=== PATIENT | female | born 1940 | race Asian ===

== ENCOUNTER 2017-04-26 20:11 | Emergency (ER) | payer OTHER ==
[2017-04-26 20:25] VITALS: BP 147/88; PULSE 79; TEMP 98; BMI 29.9
--- NOTE | 2017-04-26 21:10 | PDOC ---
History of Present Illness - General Chief Complaint: Pain Stated Complaint: FALL Time Seen by Provider: 04/26/17 20:33 - History of Present Illness Initial Comments: 04/26/17 21:10 CHIEF COMPLAINT: "coccyx pain" HISTORY OF PRESENT ILLNESS: 76 yo F with hx of HTN, NIDDM, HLD, and GERD presents to ED with coccyx pain s/p fall. Patient's daughter is at bedside and is a nurse. She is translating for mother. Daughter states that the two of them were in the garden when the patient lost her balance and fell onto her bottom. Patient daughter also states that they just returned home from [place] one week ago and the patient had developed "cellulitis to her left sevilla" and the pt's PCP prescribed po Augmentin which she has been taking for the past five days. Patient has pain to L calf and behind L knee. Patient and daughter deny any trauma or injury to head, any LOC, nausea, vomiting, but state that patient had "a little dizziness after her fall." PAST MEDICAL HISTORY: see HPI FAMILY HISTORY: Denies SOCIAL HISTORY: Denies tobacco, alcohol, illicit drug use. SURGICAL HISTORY: Denies ALLERGIES: No known drug allergies REVIEW OF SYSTEMS General/Constitutional: Denies fever or chills. Denies weakness, weight change. HEENT: Denies change in vision. Denies ear pain or discharge. Denies sore throat. Cardiovascular: Denies chest pain or shortness of breath. Respiratory: Denies cough, wheezing, or hemoptysis. Gastrointestinal: Denies nausea, vomiting, diarrhea or constipation. Denies rectal bleeding. Genitourinary: Denies dysuria, frequency, or change in urination. Musculoskeletal: "Coccyx pain, she hurts behind the L leg." Skin and breasts: Denies rash or easy bruising. Neurologic: Denies headache, vertigo, loss of consciousness, or loss of sensation. Psychiatric: Denies depression or anxiety. Endocrine: Denies increased thirst. Denies abnormal weight change. Hematologic/Lymphatic: Denies anemia, easy bleeding, or history of blood clots. Allergic/Immunologic: Denies hives or skin allergy. Denies latex allergy. PHYSICAL EXAM General Appearance: Well-appearing, appropriately dressed. No apparent distress , no intoxication. HEENT: EOMI, PERRLA, normal ENT inspection, normal voice, TMs normal, pharynx normal. No conjunctival pallor. No photophobia, scleral icterus. Neck: Supple. Trachea midline. No tenderness, rigidity, carotid bruit, stridor , lymphadenopathy, or thyromegaly. Respiratory/Chest: Lungs CTAB. No shortness of breath, chest tenderness, respiratory distress, accessory muscle use. No crackles, rales, rhonchi, stridor , wheezing, dullness Cardiovascular: RRR. S1, S2. No JVD, murmur, bradycardia, tachycardia. Vascular Pulses: Dorsalis-Pedis (R): 2+, Dorsalis-Pedis (L): 2+ Gastrointestinal/Abdominal: Normal bowel sounds. Abdomen soft, non-distended. No tenderness or rebound tenderness. No organomegaly, pulsatile mass, guarding , hernia, hepatomegaly, splenomegaly. Lymphatic: No adenopathy, tenderness. Musculoskeletal/Extremities: Tenderness to L upper calf and posterior to L knee. Normal inspection. FROM of all extremities, normal capillary refill. Pelvis Stable. No CVA tenderness. No tenderness to extremities, pedal edema, swelling, erythema or deformity. Integumentary: Appropriate color, dry, warm. No cyanosis, erythema, jaundice or rash Neurologic: ingot caster II-XII intact. Fully oriented, alert. Appropriate mood/affect. Motor strength 5/5. No appreciable EOM palsy, facial droop or sensory deficit. 04/26/17 21:28 04/26/17 23:21 Past History - Past Medical History Allergies/Adverse Reactions: Allergies Allergy/AdvReac Type Severity Reaction Status Date / Time No Known Drug Allergies Allergy Verified 04/26/17 20:17 Home Medications: Ambulatory Orders Diltiazem Cd [Cardizem Cd] 180 mg PO DAILY 05/09/12 Ezetimibe [Zetia] 10 mg PO HS 05/09/12 Gabapentin [Neurontin] 100 mg PO BID 05/09/12 Glyburide/Metformin HCl [Glucovance 5-500 mg Tablet] 1 each PO BID 05/09/12 Losartan Potassium [Cozaar] 50 mg PO HS 05/09/12 Multivitamin [Multivitamins] 1 each PO DAILY 05/09/12 Omeprazole Magnesium [Prilosec (OTC)] 20 mg PO DAILY 05/09/12 Ranitidine Oral Solution [Zantac] 150 mg PO HS 05/09/12 Simvastatin [Zocor] 10 mg PO HS 05/09/12 Oxycodone HCl/Acetaminophen [Percocet 5-325 mg Tablet] 1 tab PO Q6H PRN #30 tablet 05/23/12 Anemia: No Asthma: No Cancer: No Cardiac Disorders: No CVA: No COPD: No CHF: No Dementia: No Diabetes: Yes (CONTROLLED WITH ORAL MEDS) GI Disorders: Yes (GERD) Disorders: No HTN: Yes Hypercholesterolemia: Yes Liver Disease: No Seizures: No Thyroid Disease: No - Surgical History Abdominal Surgery: No Appendectomy: No Cardiac Surgery: No Cholecystectomy: No Lung Surgery: No Neurologic Surgery: No Orthopedic Surgery: Yes (LT ROTATOR CUFF REPAIR) - Psycho/Social/Smoking Cessation Hx Suicidal Ideation: No Smoking History: Never smoked Information on smoking cessation initiated: No Hx Alcohol Use: No Drug/Substance Use Hx: No Substance Use Type: None *Physical Exam - Vital Signs Last Vital Signs Temp Pulse Resp BP Pulse Ox 98.0 F 79 20 147/88 98 04/26/17 20:18 04/26/17 20:18 04/26/17 20:18 04/26/17 20:18 04/26/17 20:18 ED Treatment Course - LABORATORY CBC & Chemistry Diagram: 04/26/17 21:34 04/26/17 21:34 Medical Decision Making - Medical Decision Making 04/29/17 19:36 76 yo F with hx of HTN, NIDDM, HLD, and GERD presents to ED with coccyx pain s/ p fall. -cbc, cmp, pt/inr -hip/pelvis/sacrum x-rays -lumbar spine CT -LLE ultrasound Imaging all negative. No DVT on US. Advised patient and daughter to f/u with PCP this week and of signs and symptoms for return to ER; patient and daughter verbalized understanding and agree to plan. *DC/Admit/Observation/Transfer Diagnosis at time of Disposition: Fall Qualifiers: Encounter type: initial encounter Qualified Code(s): W19.XXXA - Unspecified fall, initial encounter - Discharge Dispostion Disposition: HOME Condition at time of disposition: Stable Admit: No - Referrals Referrals: Yojana Cisneros MD [Primary Care Provider] - - Patient Instructions Printed Discharge Instructions: How to Prevent Falls Additional Instructions: There was no fracture to the sacrum or lower spine. Please follow up with your primary care doctor this with for continued monitoring. If you develop any headache, dizziness, vomiting, or any new or worsening symptoms, please return to the ER.
[2017-04-26 22:10] LABS: BASOPHIL 0.7 % (0-2.0); MCH 30.3 pg (25.7-33.7); MCHC 33.6 g/dl (32.0-36.0); MEAN CELL VOLUME 90.1 fl (80-96); MEAN PLT VOLUME 8.8 fl (7.5-11.1); NEUTROPHILS 50.1 % (42.8-82.8); PLATELET COUNT 244 K/MM3 (134-434); RDW 13.6 % (11.6-15.6); WHITE BLOOD COUNT 6.3 K/mm3 (4.0-10.0)
[2017-04-26 22:30] LABS: INR 0.99 (0.82-1.09); PROTHROMBIN TIME (PATIENT) 10.9 SEC (9.98-11.88)
[2017-04-26 22:36] LABS: ALBUMIN 3.7 g/dl (3.4-5.0); ALK PHOS 80 U/L (45-117); ANION GAP 6 (8-16); BILIRUBIN,TOTAL 0.3 mg/dL (0.2-1.0); CALCIUM 9.2 mg/dL (8.5-10.1); CO2 28 mmol/L (21-32); GLUCOSE,RANDOM 167 mg/dL (74-106); SGOT/AST 49 U/L (15-37); SGPT/ALT 90 U/L (12-78); TOT PROT 7.5 g/dl (6.4-8.2)
[2017-04-26 22:39] LABS: URINE APPEARANCE CLEAR; URINE BILIRUBIN NEGATIVE (NEGATIVE); URINE BLOOD NEGATIVE (NEGATIVE); URINE COLOR STRAW; URINE GLUCOSE (UA) NEGATIVE (NEGATIVE); URINE KETONE NEGATIVE (NEGATIVE); URINE LEUK ESTERASE NEGATIVE (NEGATIVE); URINE NITRITE NEGATIVE (NEGATIVE); URINE PROTEIN NEGATIVE (NEGATIVE); URINE UROBILINOGEN NEGATIVE mg/dL (0.2-1.0)
--- NOTE | 2017-04-28 08:16 | EKG ---
Test Reason : Blood Pressure : / mmHG Vent. Rate : 067 BPM Atrial Rate : 067 BPM P-R Int : 186 ms QRS Dur : 074 ms QT Int : 418 ms P-R-T Axes : 044 042 056 degrees QTc Int : 441 ms NORMAL SINUS RHYTHM SEPTAL INFARCT , AGE UNDETERMINED ABNORMAL ECG WHEN COMPARED WITH ECG OF 09-MAY-2012 10:38, NO SIGNIFICANT CHANGE WAS FOUND Confirmed by MODESTA HAMLIN MD ([id number]) on 04/28/2017 8:16:13 AM Referred By: Confirmed By:MODESTA HAMLIN MD
== END 2017-04-27 01:36 | disposition home or self-care (01) ==
LOC: JER 20:11
DX: M53.3 Sacrococcygeal disorders, not elsewhere classified (principal); W18.39XA Other fall on same level, initial encounter; Y93.H2 Activity, gardening and landscaping; Y92.89 Other specified places as the place of occurrence of the external cause; I10 Essential (primary) hypertension; E11.9 Type 2 diabetes mellitus without complications; E78.5 Hyperlipidemia, unspecified; K21.9 Gastro-esophageal reflux disease without esophagitis; Z79.84 Long term (current) use of oral hypoglycemic drugs
CPT/HCPCS: 36415; 71111-TC; 72131-TC; 72220-TC; 73523-TC; 80053; 81003; 85025; 85610; 87086; 93005; 93010; 93971-TC; 99283-25

== ENCOUNTER 2018-01-15 08:48 | Day surgery (SDC) | payer OTHER ==
[2018-01-14 14:38] VITALS: BMI 29.8
[2018-01-15] MEDS ORDERED: PROPOFOL 20 ML ONE ×2 (09:15)
[2018-01-15 10:00] VITALS: TEMP 98.4
[2018-01-15 12:08] VITALS: BP 110/50; PULSE 70
--- NOTE | 2018-01-16 14:02 | PATH ---
Surgical Pathology Report Patient Name: [facility]. Rec. #: [id number] /Age/Gender: 1940 (Age: 77) / F Account: [id number] Location: [facility]-ENDOSCOPY Taken: 01/15/2018 Received: 01/15/2018 Reported: 01/16/2018 Physicians: Amy Marquez M.D. Specimen(s) Received A: MID TRANSVERSE COLON POLYP B: PROXIMAL TRANSVERSE COLON POLYP C: RECTAL POLYP Clinical History History of colon polyps, surveillance Postoperative diagnosis: Colon polyps (transverse colon and rectum), diverticulosis Final Diagnosis A. MID TRANSVERSE COLON, POLYP, BIOPSY: TUBULAR ADENOMA. B. PROXIMAL TRANSVERSE COLON, POLYPS, BIOPSY: HYPERPLASTIC POLYP(S). C. RECTUM, POLYPS, BIOPSY: TUBULAR ADENOMA. HYPERPLASTIC POLYP. Electronically Signed Tiki Hagan M.D. Gross Description A. Received in formalin, labeled "mid transverse" is a hanna, polypoid portion of soft tissue measuring 0.6 cm. in greatest dimension. The specimen is submitted in toto in one cassette. B. Received in formalin, labeled "proximal transverse colon polyps" are 3 hanna, irregular portions of soft tissue ranging from 0.4-0.5 cm. in greatest dimension. The specimens are submitted in toto in one cassette. C. Received in formalin, labeled "biopsy rectal polyp" are 3 hanna, irregular portions of soft tissue ranging from 0.1-0.5 cm. in greatest dimension. The specimens are submitted in toto in one cassette. /01/15/2018 saudi/01/15/2018
== END 2018-01-15 11:40 | disposition home or self-care (01) ==
LOC: JASU-ENDO 08:48
PROVIDERS: ATTEND Internal Medicine Gastroenterology
PROC: 0DBP8ZX Excision of Rectum, Via Natural or Artificial Opening Endoscopic, Diagnostic (ICD-10-PCS; 2018-01-15)
PROC: 0DBL8ZX Excision of Transverse Colon, Via Natural or Artificial Opening Endoscopic, Diagnostic (ICD-10-PCS; principal; 2018-01-15 09:15)
DX: Z12.11 Encounter for screening for malignant neoplasm of colon (principal); Z86.010 Personal history of colon polyps; D12.3 Benign neoplasm of transverse colon; K62.1 Rectal polyp; K57.30 Diverticulosis of large intestine without perforation or abscess without bleeding; I10 Essential (primary) hypertension; E11.9 Type 2 diabetes mellitus without complications; Z79.84 Long term (current) use of oral hypoglycemic drugs
CPT/HCPCS: 88305-TC

== ENCOUNTER 2020-10-15 21:05 | Emergency (ER) | payer OTHER ==
[2020-10-15 21:12] VITALS: TEMP 98.2; BMI 30.2
[2020-10-15] MEDS ORDERED: SODIUM CHLORIDE 0.9% 500 ML INFUS.BAG IV ONE (22:17)
[2020-10-15] MEDS ORDERED: ONDANSETRON 4 MG/2 ML VIAL IVPUSH ONE (22:17)
[2020-10-15 22:56] LABS: BASO % 6.3 % (0-2.0); EOS % 2.6 % (0-4.5); HEMATOCRIT 34.4 % (32.4-45.2); LYMPH % 22.6 % (8-40); MCH 30.2 pg (25.7-33.7); MCHC 34.8 g/dl (32.0-36.0); MEAN CELL VOLUME 86.8 fl (80-96); MEAN PLT VOLUME 8.8 fl (7.5-11.1); MONO % 7.9 % (3.8-10.2); NEUT % 60.6 % (42.8-82.8); PLATELET COUNT 194 K/MM3 (134-434); RBC 3.96 M/mm3 (3.60-5.2); RDW 13.5 % (11.6-15.6); WHITE BLOOD COUNT 5.4 K/mm3 (4.0-10.0)
[2020-10-15] MEDS ORDERED: ONDANSETRON 4 MG/2 ML VIAL ONE (22:59)
[2020-10-15 23:16] LABS: CHLORIDE 86 mmol/L (98-107); POTASSIUM 3.2 mmol/L (3.5-5.1); SODIUM 124 mmol/L (136-145)
[2020-10-15 23:18] LABS: ALBUMIN 3.8 g/dl (3.4-5.0); BLOOD UREA NITROGEN 11.7 mg/dL (7-18); CALCIUM 8.7 mg/dL (8.5-10.1); GLUCOSE,RANDOM 142 mg/dL (74-106)
[2020-10-15 23:20] LABS: ANION GAP 11 MMOL/L (8-16); CO2 27 mmol/L (21-32)
[2020-10-15 23:21] LABS: SGPT/ALT 56 U/L (13-61)
[2020-10-15 23:22] LABS: SGOT/AST 33 U/L (15-37)
[2020-10-15 23:23] LABS: ANISOCYTOSIS 1+; BILIRUBIN,TOTAL 0.4 mg/dL (0.2-1); MACROCYTOSIS 0; PLATELET ESTIMATE NORMAL; TOT PROT 7.2 g/dl (6.4-8.2)
[2020-10-15 23:24] LABS: ALK PHOS 64 U/L (45-117)
[2020-10-16] MEDS ORDERED: POTASSIUM CHLORIDE TABS 20 MEQ TABLET.ER (FP) PO ONE ×2 (01:26→01:27)
[2020-10-16 02:05] VITALS: BP 147/70; PULSE 72
== END 2020-10-16 02:05 | disposition home or self-care (01) ==
LOC: JER 21:05
PROC: 3E033GC Introduction of Other Therapeutic Substance into Peripheral Vein, Percutaneous Approach (ICD-10-PCS; principal; 2020-10-15)
DX: U07.1 COVID-19 (principal)
CPT/HCPCS: 36415; 71045-TC-FY; 80053; 82550; 82553; 84484; 85025; 85379; 93005; 93010; 93970-TC; 99285-25; C9803; U0003

== ENCOUNTER → 2022-02-27 | Day surgery (SDC) | payer OTHER | END | disposition home or self-care (01) | LOC: JRADIR 10:21 | PROVIDERS: ATTEND Internal Medicine Endocrinology, Diabetes & Metabolism | PROC: 0G9G3ZX Drainage of Left Thyroid Gland Lobe, Percutaneous Approach, Diagnostic (ICD-10-PCS; principal; 2022-02-27) | DX: E04.1 Nontoxic single thyroid nodule (principal) | CPT/HCPCS: 10005; 76942; 88173; 88305-TC ==